=== PATIENT | female | born 1970 | race Caucasian/White ===

== ENCOUNTER 2018-02-05 19:42 | Emergency (ER) | payer BC ==
[~2018-02-05] VITALS: Ht 162.6 cm; Wt 60.8 kg
[2018-02-05 19:48] VITALS: Ht 162.6 cm; Wt 60.8 kg
[2018-02-05 22:19] VITALS: BP 118/76
== END 2018-02-05 22:19 | disposition home or self-care (01) ==
LOC: ED 19:42
DX: G43.809 Other migraine, not intractable, without status migrainosus (principal); Z88.5 Allergy status to narcotic agent
CPT/HCPCS: J1200; J2765; J7030

== ENCOUNTER 2018-04-03 13:39 | Emergency (ER) | payer BC ==
[~2018-04-03] VITALS: Ht 162.6 cm; Wt 59.0 kg
[2018-04-03 14:00] VITALS: Ht 162.6 cm; Wt 59.0 kg
[2018-04-03 16:59] VITALS: BP 133/83
== END 2018-04-03 16:59 | disposition home or self-care (01) ==
LOC: ED 13:39
DX: G43.909 Migraine, unspecified, not intractable, without status migrainosus (principal); Z88.5 Allergy status to narcotic agent
CPT/HCPCS: J3030